=== PATIENT | male | born 1970 | race Asian ===

== ENCOUNTER 2017-06-01 09:27 | Day surgery (SDC) | payer OTHER ==
[2017-05-28 13:48] VITALS: BMI 23.1
[2017-06-01] MEDS ORDERED: PROPOFOL 20 ML ONE ×2 (09:42)
[2017-06-01 11:25] VITALS: BP 113/74; PULSE 69; TEMP 98.2
--- NOTE | 2017-06-02 16:07 | PATH ---
Surgical Pathology Report Patient Name: MARION GRULLON Med. Rec. #: [id number] /Age/Gender: 1970 (Age: 47) / M Account: [id number] Location: [facility]-ENDOSCOPY Taken: 06/01/2017 Received: 06/01/2017 Reported: 06/02/2017 Physicians: Marlon Germain M.D. Specimen(s) Received SPLENIC FLEXURE BIOPSY Clinical History Preoperative diagnosis: Family history of colon cancer, history of colonic polyp Postoperative diagnosis: Polyp Final Diagnosis SPLENIC FLEXURE, BIOPSY: TUBULAR ADENOMA. Electronically Signed Carley Dimas M.D. Gross Description Received in formalin, labeled "splenic flexure" is a stein, irregular portion of soft tissue measuring 0.1 cm. in greatest dimension. The specimen is submitted in toto in one cassette. 06/01/201706/01/2017
== END 2017-06-01 11:30 | disposition home or self-care (01) ==
LOC: FASU-ENDO 09:27
PROVIDERS: ATTEND Internal Medicine Gastroenterology
PROC: 0DBL8ZX Excision of Transverse Colon, Via Natural or Artificial Opening Endoscopic, Diagnostic (ICD-10-PCS; principal; 2017-06-01 10:12)
DX: Z86.010 Personal history of colon polyps (principal); Z80.0 Family history of malignant neoplasm of digestive organs; D12.3 Benign neoplasm of transverse colon
CPT/HCPCS: 88305-TC